=== PATIENT | female | born 1955 | race Caucasian/White ===

== ENCOUNTER 2020-07-07 19:59 | Emergency (ER) | payer OTHER ==
[~2020-07-07] VITALS: Ht 162.6 cm; Wt 65.0 kg
[2020-07-07] MEDS ORDERED: LEVO25TA2 PO (20:10)
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
[2020-07-07] MEDS ORDERED: DIAZEPAM 5 MG TABLET ONE (20:50)
[2020-07-07] MEDS ORDERED: KETOROLAC 30 MG/1 ML ONE (20:50)
[2020-07-07] MEDS ORDERED: KETOROLAC 30 MG/1 ML IM ONE (21:00)
[2020-07-07] MEDS ORDERED: DIAZEPAM 5 MG TABLET PO ONE (21:00)
--- NOTE | 2020-07-07 21:04 | NUR ---
Medicated per order, waiting for xrays. Will re-evaluate upon return.
--- NOTE | 2020-07-07 21:07 | NUR ---
Pt to xray via [facility] with [employer].
--- NOTE | 2020-07-07 21:13 | NUR ---
Pt takn to CT, pt is very anxious and states "im very claustrophobic and not sure i can do a ct", education on CT is not MRI, valium just given pt will attempt CT.
[2020-07-07] MEDS ORDERED: ONDANSETRON ODT 4 MG ONE (21:27)
[2020-07-07] MEDS ORDERED: HYDROmorphone 1 MG/ML, 1ML INJ ONE (21:28)
[2020-07-07] MEDS ORDERED: HYDROmorphone 1 MG/ML, 1ML INJ IM ONE (21:30)
[2020-07-07] MEDS ORDERED: ONDANSETRON ODT 4 MG PO ONE (21:30)
--- NOTE | 2020-07-07 21:35 | NUR ---
Pt in worse pain/spasms now, PAC edis aware and orderd meds. Pt on cont pulse ox, b/p cycle, rails up. Will continue to monitor. Attempted to reposition for comfort.
--- NOTE | 2020-07-07 21:56 | NUR ---
Still with spasms, PAC ordering some labs. CT neck neg, collar removed by flow trader. Pt o2 sat 88-91 post dilaudid placed on 2l nc. PAc aware of b/p will continue to monitor.
--- NOTE | 2020-07-07 22:09 | NUR ---
Re-eval still with spasms, waiting for lab. b/p 204/107
--- NOTE | 2020-07-07 22:38 | NUR ---
Labs drawn by lab. Pt appears tired and in less pain however still with spasms to her back says no relief so far with valium. PADinah informed. Attempted multiple repositions with pt.
[2020-07-07 22:53] LABS: BASOPHILS % (AUTO) 1 % (0-1); EOSINOPHILS % (AUTO) 1 % (1-7); LYMPHOCYTES % (AUTO) 25 % (22-44); MEAN CORPUSCULAR HEMOGLOBIN 35.1 pg (27.0-34.8); MEAN CORPUSCULAR HGB CONC 34.6 g/dL (32.4-35.8); MEAN PLATELET VOLUME 8.2 fL (7.4-10.4); MONOCYTES % (AUTO) 7 % (2-9); NEUTROPHILS % (AUTO) 66 % (42-75); PLATELET COUNT 338 x10^3/uL (130-400); RED BLOOD COUNT 4.14 x10^6/uL (3.82-5.3)
[2020-07-07 22:55] LABS: ALBUMIN 3.7 g/dL (3.4-5.0); ANION GAP 7 mmol/L (5-15); CALCIUM 8.9 mg/dL (8.5-10.1); CHLORIDE 111 mmol/L (98-107); CREATININE 0.76 mg/dL (0.55-1.02)
--- NOTE | 2020-07-07 22:58 | NUR ---
Report to DANDRE ann
[2020-07-07] MEDS ORDERED: METHOCARBAMOL 750 MG TABLET PO ONE (23:00)
[2020-07-07] MEDS ORDERED: METHOCARBAMOL 750 MG TABLET ONE (23:05)
--- NOTE | 2020-07-07 23:10 | NUR ---
patient assisted with using bedpan. continues to c/o R sided trunk spasming. at bedside. MD aware of hypertensive readings
[2020-07-07] MEDS ORDERED: OXYcodone/APAP 10/325MG TABLET ONE (23:26)
[2020-07-07 23:30] LABS: MD SCAN
[2020-07-07] MEDS ORDERED: OXYcodone/APAP 10/325MG TABLET PO ONE (23:30)
[2020-07-08 00:30] VITALS: BP 186/98
--- NOTE | 2020-07-08 01:03 | NUR ---
DISCHARGE INSTRUCTIONS REVIEWED WITH PATIENT AND SPOUSE WAS AT BEDSIDE. PRESCRIPTION HANDED TO PATIENT. PATIENT WAS INSTRUCTED BY RN THAT SHE CANNOT DRIVE AFTER TAKING PRESCRIBED ROBAXIN OR PERCOCET. SHE VERBALIZED UNDERSTANDING BACK TO RN. I STATED THIS A FEW TIMES DURING DISCHARGE REVIEW. PATIENT ALSO INSTRUCTED BY RN TO OBTAIN BP CUFF AND TAKE BP'S AND KEEP LOG AND THAT SHE NEEDS TO FOLLOW UP WITH HER PCP BLADE FOR MANAGEMENT ON NEW BP MEDICATION, LISINOPRIL, AND WHAT IS A HIGH BP AND WHAT IS A LOW BP. NO FURTHER QUESTIONS. NO IV PRESENT. ALL PERSONAL BELONGINGS WITH PATIENT UPON DC. PATIENT REQUEST WHEELCHAIR FOR DC TO [facility]
== END 2020-07-08 01:06 | disposition home or self-care (01) ==
LOC: ED 20:29
DX: S16.1XXA Strain of muscle, fascia and tendon at neck level, initial encounter (principal); S39.012A Strain of muscle, fascia and tendon of lower back, initial encounter; M79.645 Pain in left finger(s); I10 Essential (primary) hypertension; V53.5XXA Driver of pick-up truck or van injured in collision with car, pick-up truck or van in traffic accident, initial encounter; Y93.89 Activity, other specified; Y92.488 Other paved roadways as the place of occurrence of the external cause; Y99.8 Other external cause status
CPT/HCPCS: 36415; 72110; 72125; 80048; 82040; 85025; 93005; 96372; 99285; J1170; J1885; Q0162

== ENCOUNTER 2020-07-11 12:35 | Emergency (ER) | payer OTHER ==
[~2020-07-11] VITALS: Ht 162.6 cm; Wt 66.0 kg
[~2020-07-11 12:35] MED LIST: LEVO25TA2 PO
[2020-07-11] MEDS ORDERED: SODIUM CHLORIDE FLUSH 10ML SYR IVF ONE (13:30)
[2020-07-11] MEDS ORDERED: SODIUM CHLORIDE 0.9% 1,000ML IVBOLUS ONE (13:30)
[2020-07-11] MEDS ORDERED: ONDANSETRON 2MG/ML, 2ML IVPush ONE (13:30)
[2020-07-11] MEDS ORDERED: ONDANSETRON 2MG/ML, 2ML ONE (13:41)
[2020-07-11 13:49] LABS: BASOPHILS % (AUTO) 2 % (0-1); EOSINOPHILS % (AUTO) 0 % (1-7); LYMPHOCYTES % (AUTO) 22 % (22-44); MEAN CORPUSCULAR HEMOGLOBIN 35.7 pg (27.0-34.8); MEAN CORPUSCULAR HGB CONC 34.1 g/dL (32.4-35.8); MEAN PLATELET VOLUME 8.4 fL (7.4-10.4); MONOCYTES % (AUTO) 9 % (2-9); NEUTROPHILS % (AUTO) 68 % (42-75); PLATELET COUNT 232 x10^3/uL (130-400); RED BLOOD COUNT 4.42 x10^6/uL (3.82-5.3); RED CELL DISTRIBUTION WIDTH 13.4 % (9.6-15.2)
[2020-07-11 13:53] LABS: MD NO
[2020-07-11 13:54] LABS: MICROSCOPIC AUTO
[2020-07-11 13:56] LABS: ALANINE AMINOTRANSFERASE 32 U/L (12-78); ALBUMIN 3.5 g/dL (3.4-5.0); ANION GAP 8 mmol/L (5-15); CALCIUM 8.3 mg/dL (8.5-10.1); CHLORIDE 112 mmol/L (98-107); CREATININE 0.88 mg/dL (0.55-1.02)
[2020-07-11 14:01] LABS: ALKALINE PHOSPHATASE 77 U/L (45-117); BILIRUBIN,TOTAL 0.4 mg/dL (0.2-1.0); TOTAL PROTEIN 6.9 g/dL (6.4-8.2); TROPONIN I < 0.015 ng/mL (0.000-0.045)
[2020-07-11 14:05] VITALS: BP 172/91
== END 2020-07-11 15:23 | disposition home or self-care (01) ==
LOC: ED 15:10
DX: R19.7 Diarrhea, unspecified (principal); R55 Syncope and collapse; R11.2 Nausea with vomiting, unspecified; E86.0 Dehydration; R07.9 Chest pain, unspecified; M54.5 Low back pain; I10 Essential (primary) hypertension; Z90.710 Acquired absence of both cervix and uterus
CPT/HCPCS: 36415; 71045; 80053; 81001; 84484; 85025; 87086; 93005; 99285

== ENCOUNTER 2020-07-27 11:42 | Outpatient (CLI) | payer OTHER | END 2020-07-27 23:59 | disposition home or self-care (01) | LOC: RAD 11:42 | PROVIDERS: ATTEND Family Medicine | DX: G44.319 Acute post-traumatic headache, not intractable (principal); M48.02 Spinal stenosis, cervical region; M25.78 Osteophyte, vertebrae; I10 Essential (primary) hypertension; Z98.1 Arthrodesis status; Z98.890 Other specified postprocedural states | CPT/HCPCS: 70551; 72141; 99156; 99157 ==

== ENCOUNTER → 2020-10-11 | Outpatient (CLI) | payer OTHER ==
[~2020-10-11] MED LIST changes: +FENTANYL PF 100 MCG/2ML ONE; +MIDAZOLAM 1 MG/ML, 5ML ONE
== END | disposition home or self-care (01) ==
LOC: RAD 07:20
PROVIDERS: ATTEND Physician Assistant Surgical
DX: M51.36 Other intervertebral disc degeneration, lumbar region (principal); M48.061 Spinal stenosis, lumbar region without neurogenic claudication; I10 Essential (primary) hypertension; F12.90 Cannabis use, unspecified, uncomplicated; Z79.890 Hormone replacement therapy; Z87.891 Personal history of nicotine dependence; Z98.1 Arthrodesis status
CPT/HCPCS: 72148; 99156; 99157; J2250; J3010

== ENCOUNTER 2021-02-13 09:10 | Outpatient (CLI) | payer OTHER ==
[~2021-02-13 09:10] MED LIST changes: -FENTANYL PF 100 MCG/2ML ONE; -MIDAZOLAM 1 MG/ML, 5ML ONE
== END 2021-02-13 23:59 | disposition home or self-care (01) ==
LOC: RAD 09:10
PROVIDERS: ATTEND Neurological Surgery
DX: Z01.810 Encounter for preprocedural cardiovascular examination (principal); Z01.811 Encounter for preprocedural respiratory examination; M53.2X2 Spinal instabilities, cervical region; M43.22 Fusion of spine, cervical region; M47.22 Other spondylosis with radiculopathy, cervical region; R94.31 Abnormal electrocardiogram [ECG] [EKG]; R79.1 Abnormal coagulation profile; R82.90 Unspecified abnormal findings in urine; R07.9 Chest pain, unspecified
CPT/HCPCS: 71046; 72040; 93005

== ENCOUNTER 2021-03-01 13:04 | Emergency (ER) | payer OTHER ==
[~2021-03-01] VITALS: Ht 162.6 cm; Wt 59.0 kg
--- NOTE | 2021-03-01 13:59 | NUR ---
PT WC'D TO ROOM 10 W/ C/O SHOOTING SPASMS AND PAIN DOWN L ARM AND PT STATES SHE IS CURRENTLY ON NARCOTICS FOR PAIN AFTER SURGERY. PT STATES SHE HAS BEEN HAVING ISSUES W/ CONSTIPATION SINCE AND HAD A BM TODAY FOR THE FIRST TIME SINCE SURGERY. PT STATES SHE TOOK MAG [employer] PRIOR TO BM. PT STATES SHE ALMOST PASSED OUT IN THE RESTROOM. PT RESTING ON GURNEY. NADN. MONITORS APPLIED. VSS. WARM BLANKET PROVIDED. CALL LIGHT IN REACH. ERP DR. CASTILLO AT BEDSIDE FOR EVAL.
[2021-03-01] MEDS ORDERED: METHYLNALTREXONE 12 MG/0.6 ML SYR SQ ONE ×2 (14:17→14:30)
[2021-03-01 14:23] LABS: BASOPHILS % (AUTO) 0 % (0-1); EOSINOPHILS % (AUTO) 0 % (1-7); LYMPHOCYTES % (AUTO) 7 % (22-44); MEAN CORPUSCULAR HEMOGLOBIN 35.7 pg (27.0-34.8); MEAN CORPUSCULAR HGB CONC 34.4 g/dL (32.4-35.8); MEAN PLATELET VOLUME 7.1 fL (7.4-10.4); MONOCYTES % (AUTO) 4 % (2-9); NEUTROPHILS % (AUTO) 88 % (42-75); PLATELET COUNT 438 x10^3/uL (130-400); RED BLOOD COUNT 4.21 x10^6/uL (3.82-5.3)
[2021-03-01] MEDS ORDERED: SODIUM CHLORIDE 0.9% 1,000ML IVBOLUS ONE (14:30)
[2021-03-01] MEDS ORDERED: SODIUM CHLORIDE FLUSH 10ML SYR IVF ONE (14:30)
[2021-03-01 14:36] LABS: ALBUMIN 3.4 g/dL (3.4-5.0); ANION GAP 7 mmol/L (5-15); CHLORIDE 103 mmol/L (98-107)
[2021-03-01 14:39] LABS: ALANINE AMINOTRANSFERASE 280 U/L (12-78); ALKALINE PHOSPHATASE 422 U/L (45-117); BILIRUBIN,TOTAL 0.7 mg/dL (0.2-1.0); CREATININE 0.77 mg/dL (0.55-1.02); TOTAL PROTEIN 7.7 g/dL (6.4-8.2)
--- NOTE | 2021-03-01 14:54 | NUR ---
PT RESTING ON GURNEY. NADN. HANSON.
[2021-03-01] MEDS ORDERED: PINK LADY ENEMA 490 ML BOTTLE PR ONE (15:30)
[2021-03-01] MEDS ORDERED: DIAZEPAM 5 MG/ML, 2ML IVPush ONE (15:30)
[2021-03-01] MEDS ORDERED: KETOROLAC 30 MG/1 ML IVPush ONE (15:30)
[2021-03-01] MEDS ORDERED: DIAZEPAM 5 MG/ML, 2ML ONE (15:40)
[2021-03-01] MEDS ORDERED: KETOROLAC 30 MG/1 ML ONE (15:40)
[2021-03-01 16:33] VITALS: BP 165/86
--- NOTE | 2021-03-01 16:43 | NUR ---
TASK RN NOTE: PT TOLERATED ENEMA FAIRLY. UP TO BEDSIDE COMMODE. TISSUES PROVIDED. CALL LIGHT IN REACH. REMAINS AT BEDSIDE.
--- NOTE | 2021-03-01 16:46 | NUR ---
PT HAD +BM AFTER ENEMA W/ [address] ERP [address]. CASTILLO NOTIFIED AND PER ERP PT OKAY TO DC.
== END 2021-03-01 16:56 | disposition home or self-care (01) ==
LOC: ED 14:42
DX: K59.00 Constipation, unspecified (principal); M62.838 Other muscle spasm; R94.5 Abnormal results of liver function studies; I10 Essential (primary) hypertension
CPT/HCPCS: 36415; 74022; 80053; 85025; 93005; 96361; 96372; 96374; 96375; 99285; J1885; J3360; J7030